=== PATIENT | male | born 1975 | race Caucasian/White ===

== ENCOUNTER 2021-06-03 11:12 | Emergency (ER) | payer OTHER ==
[~2021-06-03] VITALS: Ht 152.4 cm; Wt 81.6 kg
[~2021-06-03 11:12] MED LIST: INTESTINEX1 CAP PO; TUSSI PRES-B L120 M1 PO; ZANTAC150 M3 PO; ZITHROMAX200 MG PO
== END 2021-06-03 15:51 | disposition home or self-care (01) ==
LOC: ER 11:12
DX: L03.116 Cellulitis of left lower limb (principal); U07.1 COVID-19

== ENCOUNTER → 2021-06-06 | Emergency (ER) | payer OTHER ==
[~2021-06-06] MED LIST changes: +PRILOSEC OTC20 MG PO
== END | disposition left against medical advice (07) ==
LOC: ER 15:10
DX: Z53.21 Procedure and treatment not carried out due to patient leaving prior to being seen by health care provider (principal)

== ENCOUNTER 2021-06-07 07:47 | Emergency (ER) | payer OTHER ==
[~2021-06-07] VITALS: Ht 167.6 cm; Wt 81.6 kg
[~2021-06-07 07:47] MED LIST changes: -PRILOSEC OTC20 MG PO
[2021-06-07] MEDS ORDERED: PRILOSEC OTC20 MG PO (08:12)
== END 2021-06-07 14:29 | disposition home or self-care (01) ==
LOC: ER 07:47
DX: L97.929 Non-pressure chronic ulcer of unspecified part of left lower leg with unspecified severity (principal); A49.9 Bacterial infection, unspecified; L03.116 Cellulitis of left lower limb

== ENCOUNTER 2022-07-04 11:39 | Outpatient (CLI) | payer OTHER ==
[~2022-07-04 11:39] MED LIST changes: +PRILOSEC OTC20 MG PO
== END 2022-07-04 11:49 | disposition home or self-care (01) ==
LOC: RAD 11:39
PROVIDERS: ATTEND Internal Medicine Pulmonary Disease
DX: J44.1 Chronic obstructive pulmonary disease with (acute) exacerbation (principal); S69.91XA Unspecified injury of right wrist, hand and finger(s), initial encounter; S62.601A Fracture of unspecified phalanx of left index finger, initial encounter for closed fracture